=== PATIENT | male | born 1970 | race Caucasian/White ===

== ENCOUNTER 2024-01-08 12:27 | Emergency (ER) | payer OTHER ==
[~2024-01-08] VITALS: Ht 185.4 cm; Wt 110.0 kg
--- OUTSIDE RECORDS SUMMARY | 2024-01-08 12:28 | XMS ---
PreManage Notification: REILLY GUNN Security Welder/Fitter Events No recent Security Events currently on file CRITERIA MET - [facility] -, [facility] Dentist: Metal Cleaner [facility] PHONE: [phone] -[facility]- Dentist: Metal Cleaner [facility] PHONE: [phone] BRIANNA BARRIGA [facility] Current PHONE: [phone] Marsha has no Care Guidelines for this patient. E.D. VISIT COUNT (12 MO.) 1 LEONARDO Castaneda TOTAL 1 NOTE: Visits indicate total known visits. ED/UCC VISIT TRACKING (12 MO.) 01/08/2024 12:27 LEONARDO Jade [place] TYPE: Emergency COMPLAINT: - SHOULDER PAIN AND NUMBNESS INPATIENT VISIT TRACKING (12 MO.) No inpatient visits to display in this time frame [email or web address]
[2024-01-08] MEDS ORDERED: ALBUTEROL/IPRATROPIUM 3 ML NEB INH PRN (12:45)
[2024-01-08] MEDS ORDERED: methylPREDNISolone SOD SUCC 125 MG/2 ML VIAL IV ONE (13:00)
[2024-01-08] MEDS ORDERED: PREDNISONE20 MG PO (13:06)
[2024-01-08 13:16] LABS: BASOPHILS 1.3 % (0-2); EOSINOPHILS 4.9 % (0-6); HEMOGLOBIN 17.4 g/dL (12.0-18.0); LYMPHOCYTES 31.5 % (24-44); MCH 29.4 (27-36); MCHC 33.4 g/dl (30-36); MCV 88.1 fl (81-99); MONOCYTES 10.6 % (0-12); NEUTROPHILS 51.7 % (39-80); PLATELET COUNT 196 K/uL (140-440); RBC 5.91 M/ul (4.3-5.7); RDW 13.2 (10.5-15.0)
[2024-01-08 13:43] LABS: ALBUMIN 4.1 g/dL (3.4-5.0); ALBUMIN/GLOBULIN RATIO 1.21 (1.1-2.4); ANION GAP 12.9 (7-21); BILIRUBIN, TOTAL 0.4 ng/dL (0.2-1.0); BUN/CREATININE RATIO 11.34 (6.0-28.6); CALCIUM 9.3 mg/dL (8.5-10.1); CREATININE, SERUM 0.97 mg/dL (0.70-1.30); MAGNESIUM 2.1 mg/dL (1.8-2.4); POTASSIUM 3.9 mmol/L (3.5-5.1); PROTEIN, TOTAL 7.5 g/dL (6.4-8.2)
[2024-01-08] MEDS ORDERED: ZANAFLEX4 MG PO (14:42)
[2024-01-08] MEDS ORDERED: OMEPRAZOLE40 MG PO (14:42)
[2024-01-08] MEDS ORDERED: SPIRIVA RESPIMAT4 GM INH (14:42)
[2024-01-08] MEDS ORDERED: MELOXICAM7.5 MG PO (14:42)
[2024-01-08] MEDS ORDERED: VENTOLIN HFA18 GM INH (14:43)
[2024-01-08] MEDS ORDERED: GABAPENTIN300 MG PO (14:43)
[2024-01-08] MEDS ORDERED: LISINOPRIL10 MG PO (14:43)
[2024-01-08] MEDS ORDERED: ALBUTEROL SULFATE 0.083% 3 ML VIAL INH ONE (14:45)
[2024-01-08 15:39] VITALS: BP 165/92
--- NOTE | 2024-01-09 14:40 | EKG ---
[facility] [address] [place], [place] [address] Signed Normal sinus rhythm Normal ECG No previous ECGs available Confirmed by Cintia Palomares ([id number]) on 01/09/2024 2:40:15 PM Electronically Signed By: CINTIA PALOMARES MD 01/09/24 1440 PATIENT NAME: REILLY GUNN Electrocardiogram DATE OF : 68 PHYSICIAN: CINTIA PALOMARES MD REPORT #: [id number] REPORT IS CONFIDENTIAL AND NOT TO BE RELEASED WITHOUT AUTHORIZATION
== END 2024-01-08 15:40 | disposition home or self-care (01) ==
LOC: ED 12:27
PROVIDERS: Emergency Medicine
DX: J44.1 Chronic obstructive pulmonary disease with (acute) exacerbation (principal); I10 Essential (primary) hypertension; Z88.0 Allergy status to penicillin; Z88.8 Allergy status to other drugs, medicaments and biological substances; Z79.899 Other long term (current) drug therapy; Z79.52 Long term (current) use of systemic steroids
CPT/HCPCS: 36415; 71045; 80053; 83735; 83880; 84484; 85025; 93005; 93010; 94640; J2919